=== PATIENT | female | born 1965 | race Caucasian/White ===

== ENCOUNTER 2017-10-17 09:37 | Emergency (ER) | payer BC ==
[~2017-10-17] VITALS: Ht 160 cm; Wt 68.9 kg
[2017-10-17 09:48] VITALS: Ht 160 cm; Wt 68.9 kg
[2017-10-17 12:24] VITALS: BP 130/74
== END 2017-10-17 12:24 | disposition home or self-care (01) ==
LOC: ED 09:37
DX: M17.11 Unilateral primary osteoarthritis, right knee (principal)